=== PATIENT | female | born 1980 | race Caucasian/White ===

== ENCOUNTER 2024-04-04 20:06 | Emergency (ER) | payer OTHER ==
[~2024-04-04] VITALS: Ht 165.1 cm; Wt 65.8 kg
[2024-04-04 20:54] VITALS: BP 138/74; PULSE 64; RESP 16; TEMP 98.3; O2SAT 98
[2024-04-04] MEDS ORDERED: AMOX1TAB8 PO (22:42)
[2024-04-04] MEDS: BACITRACIN OINT 500 UNITS/GM PKT TP ONE (22:56)
[2024-04-04] MEDS: AMOXIL/CLAVULANATE 875/125 MG 1 TAB PO ONE (22:56)
== END 2024-04-04 23:32 | disposition home or self-care (01) ==
LOC: MED 20:06
DX: S61.411A Laceration without foreign body of right hand, initial encounter (principal); S30.811A Abrasion of abdominal wall, initial encounter; Z79.2 Long term (current) use of antibiotics; W54.0XXA Bitten by dog, initial encounter; Y93.89 Activity, other specified; Y92.89 Other specified places as the place of occurrence of the external cause; Y99.8 Other external cause status
CPT/HCPCS: 12001; 90471; 90715; 99283